=== PATIENT | female | born 1930 | race Native Hawaiian/Other Pacific Islander ===

== ENCOUNTER 2016-09-09 14:18 | Inpatient (IN) | payer OTHER ==
[~2016-09-09] VITALS: Ht 167.6 cm; Wt 61.4 kg
[~2016-09-09 14:18] MED LIST: AMLO2.5T PO; ARICEPT ODT10 MG PO; ASPIR-8181 MG PO; CARV3.12 PO; CLOP75TA2 PO; ESCI10TA PO; LODRANE D1 CAP PO; LOPERAMIDE2 MG PO; MECLIZINE25 MG PO; METO50TA63 PO; NAMENDA XR28 MG OR; NAMENDA5 MG PO; PANT40TA PO; PRAVACHOL20 MG PO; PROMETHAZINE25 MG PO; RISP0.25 PO; SIMV40TA57 PO
[2016-09-09 17:36] LABS: PLATELET COUNT 220 K/uL (152-353)
[2016-09-09 18:01] LABS: POTASSIUM 4.7 mmol/L (3.6-5.2)
[2016-09-09 18:55] VITALS: BP 189/54; TEMP 97.7; Ht 167.6 cm; Wt 61.4 kg
[2016-09-09 20:25] VITALS: BP 137/55; TEMP 98.9
[2016-09-10 00:40] VITALS: BP 130/50; TEMP 98
[2016-09-10 04:00] VITALS: BP 124/67; TEMP 98.1
[2016-09-10 05:58] LABS: PLATELET COUNT 170 K/uL (152-353)
[2016-09-10 06:17] LABS: POTASSIUM 3.7 mmol/L (3.6-5.2)
[2016-09-10 08:00] VITALS: BP 140/61; TEMP 98.8
[2016-09-10] MEDS ORDERED: ZIPR20CA PO ×2 (10:27→10:28)
[2016-09-10 11:41] VITALS: BP 136/47; TEMP 97.8
[2016-09-10 15:54] VITALS: BP 134/68; TEMP 97.6
[2016-09-10 19:49] VITALS: BP 154/54; TEMP 98.8
[2016-09-11 00:27] VITALS: BP 159/72; TEMP 98
[2016-09-11 04:00] VITALS: BP 160/62; TEMP 97.9
[2016-09-11 05:40] LABS: PLATELET COUNT 165 K/uL (152-353)
[2016-09-11 06:04] LABS: POTASSIUM 3.9 mmol/L (3.6-5.2); SODIUM 139 mmol/L (136-145)
[2016-09-11 08:00] VITALS: BP 159/57; TEMP 98.4
[2016-09-11 12:00] VITALS: BP 140/68; BP 189/61; TEMP 97.7; TEMP 98.5
[2016-09-11 16:00] VITALS: BP 157/56; TEMP 97.9
[2016-09-11 20:12] VITALS: BP 165/53; TEMP 98.4
[2016-09-12 00:12] VITALS: BP 180/70; TEMP 98
[2016-09-12 04:00] VITALS: BP 166/59; TEMP 98.1
[2016-09-12 06:01] LABS: PLATELET COUNT 152 K/uL (152-353)
[2016-09-12 06:18] LABS: POTASSIUM 3.7 mmol/L (3.6-5.2); SODIUM 140 mmol/L (136-145)
[2016-09-12 07:37] VITALS: BP 145/55; TEMP 98.2
[2016-09-12 11:34] VITALS: BP 148/45; TEMP 98.5
[2016-09-12 16:18] VITALS: BP 189/69; TEMP 98.6
[2016-09-12 20:06] VITALS: BP 157/71; TEMP 98.3
[2016-09-13] VITALS: BP 157/71; TEMP 98.3
[2016-09-13 04:00] VITALS: BP 144/48; TEMP 97.8
[2016-09-13 06:26] LABS: PLATELET COUNT 167 K/uL (152-353)
[2016-09-13 06:39] LABS: POTASSIUM 3.9 mmol/L (3.6-5.2); SODIUM 137 mmol/L (136-145)
[2016-09-13 08:00] VITALS: BP 150/63; TEMP 98.3
[2016-09-13 12:00] VITALS: BP 160/50; TEMP 98.5
[2016-09-13 16:00] VITALS: BP 179/54; TEMP 98.8
[2016-09-13 20:00] VITALS: BP 142/79; TEMP 98.6
[2016-09-14 00:26] VITALS: BP 197/71; TEMP 98.4
[2016-09-14 04:00] VITALS: BP 173/89; TEMP 98
[2016-09-14 08:16] VITALS: BP 194/68; TEMP 98.2
== END 2016-09-14 11:22 | disposition home or self-care (01) | DRG 690 ==
LOC: MED/SURG 14:18
PROVIDERS: Emergency Medicine; ADMIT Family Medicine
DX: N39.0 Urinary tract infection, site not specified (principal); F03.91 Unspecified dementia, unspecified severity, with behavioral disturbance; N30.00 Acute cystitis without hematuria; R41.82 Altered mental status, unspecified; R60.1 Generalized edema; E86.0 Dehydration; R53.81 Other malaise
CPT/HCPCS: 36415; 80053; 80301; 81000; 83735; 83880; 84443; 85027; 85610; 87088; 96365; 96366; 96367; G0479